=== PATIENT | male | born 1970 | race African-American/Black ===

== ENCOUNTER 2021-12-04 13:03 | Emergency (ER) | payer MEDICAID ==
[~2021-12-04] VITALS: Ht 188 cm; Wt 98.0 kg
--- NOTE | 2021-12-04 13:15 | NUR ---
BIB [facility] FROM [facility] FOR INCREASED AGITATION,SMOKING AND THROWING STAFF ALL OVER. THE PATIENT IN ROOM AIR AND DENIES SOB. RESPIRATION REGULAR AND UNLABORED. DENIES PAIN. WILL CONTINUE TO MONITOR THE PATIENT.
[2021-12-04] MEDS ORDERED: MULT-24 PO (13:39)
[2021-12-04] MEDS ORDERED: GABA-532 PO (13:39)
[2021-12-04] MEDS ORDERED: BACL10TA PO (13:39)
[2021-12-04] MEDS ORDERED: ACET-868 PO (13:39)
[2021-12-04] MEDS ORDERED: LIDO30AD10 TP (13:39)
[2021-12-04] MEDS ORDERED: NA P133E RC (13:39)
[2021-12-04] MEDS ORDERED: MELO5CAP PO (13:39)
[2021-12-04] MEDS ORDERED: SENN-261 PO (13:39)
[2021-12-04] MEDS ORDERED: BISA10SU11 RC (13:39)
[2021-12-04] MEDS ORDERED: CALC1TAB30 PO (13:39)
[2021-12-04] MEDS ORDERED: MAGN400O6 PO (13:39)
[2021-12-04] MEDS ORDERED: ESCI10TA PO (13:39)
[2021-12-04] MEDS ORDERED: TRAM50TA2 PO (13:39)
--- NOTE | 2021-12-04 13:41 | NUR ---
COVID ANTIGEN SWAB DONE AND SENT TO THE LAB
--- NOTE | 2021-12-04 13:42 | NUR ---
URINE COLLECTED AND SENT TO THE LAB
[2021-12-04 14:35] LABS: BASOPHILS % (AUTO) 0.6 % (0.0-2.0); EOSINOPHILS % (AUTO) 2.8 % (0.0-6.0); HEMATOCRIT 36 % (39-51); HEMOGLOBIN 12.3 g/dL (13.5-17.5); LYMPHOCYTES # (AUTO) 1.5 K/uL (0.8-4.8); LYMPHOCYTES % (AUTO) 26.9 % (20.0-44.0); MEAN CORPUSCULAR HGB CONC 34 g/dl (31.0-36.0); MEAN CORPUSCULAR VOLUME 88 fL (80-96); MONOCYTES # (AUTO) 0.5 K/uL (0.1-1.30); NEUTROPHILS # (AUTO) 3.5 K/uL (1.8-8.9); NEUTROPHILS % (AUTO) 61.7 % (43.0-81.0); PLATELET COUNT (AUTO) 175 K/uL (150-450); RED BLOOD CELL COUNT(AUTO) 4.09 MIL/uL (4.5-6.0); WHITE BLOOD COUNT (AUTO) 5.6 K/uL (4.3-11.0)
[2021-12-04 14:48] LABS: CALCIUM, SERUM 8.9 mg/dL (8.5-10.1); CARBON DIOXIDE 27 mmol/L (21-32); CHLORIDE 107 mmol/L (98-107); GLUCOSE 81 mg/dL (74-106); POTASSIUM 4.4 mmol/L (3.5-5.1); SODIUM SERUM 139 mmol/L (136-145); UREA NITROGEN, BLOOD 16 mg/dL (7-18)
[2021-12-04 15:01] LABS: ALANINE AMINOTRANSFERASE 39 U/L (12-78); ALBUMIN 3.6 g/dL (3.4-5.0); ALCOHOL, BLOOD < 3 mg/dL (0-0); ALKALINE PHOSPHATASE 102 U/L (46-116); ASPARTATE AMINOTRANSFERASE 23 U/L (15-37); BILIRUBIN,DIRECT 0.1 mg/dL (0.0-0.2); BILIRUBIN,TOTAL 0.3 mg/dL (0.2-1.0); TOTAL PROTEIN, SERUM 8.4 g/dL (6.4-8.2)
[2021-12-04 15:29] LABS: ACETAMINOPHEN 0 ug/ml (10-30)
[2021-12-04 18:14] LABS: BILIRUBIN,URINE NEGATIVE (NEGATIVE); COLOR,URINE YELLOW (YELLOW); LEUKOCYTE ESTERASE ,URINE NEGATIVE (NEGATIVE); NITRITE, URINE NEGATIVE (NEGATIVE); PROTEIN,URINE NEGATIVE (NEGATIVE); UGLUCOSE NEGATIVE (NEGATIVE)
[2021-12-04 18:52] LABS: BACTERIA,URINE Rare /HPF (None Seen); RBC,URINE NONE SEEN /HPF (0-2); SQUAMOUS EPITHELIAL CELL,UR Few /HPF (None Seen); WBC,URINE NONE SEEN /HPF (0-3)
--- NOTE | 2021-12-04 22:32 | NUR ---
CALLED [facility] FOR PSYCH EVAL. PT AWAKE, ALERT AND RESPONSIVE AT THIS TIME
--- NOTE | 2021-12-04 22:39 | NUR ---
PT RESTING ING BED; NO AGITATION NOTED AT THIS TIME. PT IN NO ACUTE DISTRESS AT THIS TIME
--- NOTE | 2021-12-05 00:20 | NUR ---
CALLED [facility] FOR PSYCH EVAL. PT AWAKE, ALERT AND RESPONSIVE AT THIS TIME
[2021-12-05] MEDS ORDERED: GABAPENTIN 100 MG CAPSULE ONE (00:37)
--- NOTE | 2021-12-05 00:41 | NUR ---
REPORT GIVEN TO RENETTA FROM [facility] FOR [facility]
--- NOTE | 2021-12-05 00:57 | NUR ---
PT VERBALIZED DC INSTRUCTIONS AND SIGNED PAPERWORK. REPORT GIVEN TO [facility]. PT DC TO [facility]. ALL BELONGINGS WITH PT
[2021-12-05 00:59] VITALS: BP 117/79
[2021-12-05] MEDS ORDERED: GABAPENTIN 100 MG CAPSULE PO ONE (01:00)
== END 2021-12-05 00:57 ==
LOC: ER 13:12
DX: R45.1 Restlessness and agitation (principal); F22 Delusional disorders; Z20.822 Contact with and (suspected) exposure to COVID-19; M19.90 Unspecified osteoarthritis, unspecified site
CPT/HCPCS: 36415; 80048; 80076; 80143; 80307; 80320; 81001; 85025; 87426; 99283; C9803; G0480